=== PATIENT | female | born 1980 | race Caucasian/White ===

== ENCOUNTER 2016-10-30 14:38 | Emergency (ER) | payer OTHER ==
[~2016-10-30] VITALS: Ht 175.3 cm; Wt 65.3 kg
[2016-10-30 15:05] VITALS: BP 107/73
[2016-10-30] MEDS ORDERED: XANAX1 M1 PO (15:35)
[2016-10-30] MEDS ORDERED: LITHIUM CARBON300 M5 PO (15:35)
[2016-10-30] MEDS ORDERED: LITHIUM CARBON150 M1 PO (15:35)
[2016-10-30] MEDS ORDERED: QUETIAPINE FUMA50 M1 PO (15:35)
[2016-10-30] MEDS ORDERED: WELLBUTRIN XL150 M2 PO (15:35)
[2016-10-30] MEDS ORDERED: TOPAMAX50 M1 PO (15:35)
[2016-10-30] MEDS ORDERED: BUSPIRONE HCL10 M1 PO (15:35)
[2016-10-30] MEDS ORDERED: MINIPRESS2 M1 PO (15:35)
[2016-10-30] MEDS ORDERED: ABILIFY10 M1 PO (15:35)
--- NOTE | 2016-10-30 15:36 | ED GENERAL ADULT ---
History of Present Illness General Chief Complaint: General Adult Stated Complaint: MED REFILL Source: patient, old records Exam Limitations: no limitations Vital Signs & Intake/Output Vital Signs & Intake/Output Vital Signs Date Time Temp Pulse Resp B/P Pulse O2 O2 Flow FiO2 Ox Delivery Rate 10/30 1505 97.6 86 18 107/73 99 Room Air Allergies Coded Allergies: No Known Allergies (10/30/16) Reconcile Medications Alprazolam (Xanax) 1 MG TABLET 1 TAB PO TID ANXIETY Aripiprazole (Abilify) 10 MG TABLET 1 TAB PO DAILY ANXIETY Bupropion HCl (Wellbutrin XL) 150 MG TAB.ER.24H 1 TAB PO QAM DEPRESSION Buspirone HCl 10 MG TABLET 1 TAB PO BID DEPRESSION [place] Carbonate 150 MG CAPSULE 1 CAP PO QAM DEPRESSION [place] Carbonate 300 MG TABLET 1 TAB PO QPM DEPRESSION Prazosin HCl (Minipress) 2 MG CAPSULE 1 CAP PO QPM ANXIETY Quetiapine Fumarate 50 MG TABLET 1 TAB PO BID DEPRESISON Topiramate (Topamax) 50 MG TABLET 1 TAB PO QPM DEPRESSION Triage Note: STATES SHE RAN OUT OF ALL HER MEDICATIONS ON 10/28, SAW PMD ON 10/27, WHO WAS SUPPOSED TO RENEW MEDS. (Julia JOHNSON, [facility] [place], PT WENT TO [facility] IN [place], MEDS WERE NOT REFILLED. PT HAS LIST OF 9 MEDICATIONS WITH HER. Triage Nurses Notes Reviewed? yes : No Patient currently breastfeeds: No HPI: Patient saw her psychiatrist last week and the psychiatrist forgot to call in a refill for her prescription. Patient is able to see her psychiatrist again this for more meds but needs medications to last until then. Patient denies any suicidal or homicidal ideations. Patient denies any hallucinations. Patient has no other complaints. Past History Travel History Traveled to [place] past 21 day No Medical History Any Pertinent Medical History? see below for history Psychiatric: anxiety, depression, PTSD Surgical History Surgical History: non-contributory Psychosocial History What is your primary language Colombian Tobacco Use: Current Daily Use Daily Tobacco Use Amount/Type: =< 4 Cigarettes daily ETOH Use: denies use Illicit Drug Use: denies illicit drug use Family History Hx Contributory? No Review of Systems Review of Systems Constitutional: Reports: no symptoms. Respiratory: Reports: no symptoms. Cardiovascular: Reports: no symptoms. Musculoskeletal: Reports: no symptoms. Neurological/Psychological: Reports: no symptoms. Immunologic/Allergic: Reports: no symptoms. Physical Exam Physical Exam General Appearance: well developed/nourished, alert, awake Head: atraumatic Eyes: Bilateral: PERRL, EOMI. Neck: normal inspection, supple, full range of motion Respiratory: normal breath sounds, chest non-tender, no respiratory distress, lungs clear Cardiovascular: regular rate/rhythm, normal peripheral pulses Neurologic/Psych: no motor/sensory deficits, awake, alert, oriented x 3, normal gait, normal mood/affect Core Measures ACS in differential dx? No CVA/TIA Diagnosis: No Severe Sepsis Present: No Septic Shock Present: No Progress Differential Diagnoses I considered the following diagnoses in my evaluation of the patient: [ Medication refill] Plan of Care: Refill medications Initial ED EKG: none Departure Departure Disposition: HOME OR SELF CARE Condition: Stable Clinical Impression Primary Impression: Medication refill Referrals: PATIENT HAS NO PRIMARY CARE DR (PCP/Family) Departure Forms: Customer Survey General Discharge Information Prescriptions: Current Visit Scripts Alprazolam (Xanax) 1 TAB PO TID #21 TAB Topiramate (Topamax) 1 TAB PO QPM #7 TAB Quetiapine Fumarate 1 TAB PO BID #14 TAB [place] Carbonate 1 CAP PO QAM #7 CAP [place] Carbonate 1 TAB PO QPM #7 TAB Prazosin HCl (Minipress) 1 CAP PO QPM #7 CAP Buspirone HCl 1 TAB PO BID #14 TAB Aripiprazole (Abilify) 1 TAB PO DAILY #7 TAB Bupropion HCl (Wellbutrin XL) 1 TAB PO QAM #7 TAB Critical Care Note Critical Care Note Critical Care Time: non-applicable
== END 2016-10-30 15:41 ==
LOC: ERH 14:38
DX: Z76.0 Encounter for issue of repeat prescription (principal)
CPT/HCPCS: 99281

== ENCOUNTER 2016-11-21 12:04 | Emergency (ER) | payer OTHER ==
[~2016-11-21] VITALS: Ht 175.3 cm; Wt 65.3 kg
[~2016-11-21 12:04] MED LIST: ABILIFY10 M1 PO; BUSPIRONE HCL10 M1 PO; LITHIUM CARBON150 M1 PO; LITHIUM CARBON300 M5 PO; MINIPRESS2 M1 PO; QUETIAPINE FUMA50 M1 PO; TOPAMAX50 M1 PO; WELLBUTRIN XL150 M2 PO; XANAX1 M1 PO
--- NOTE | 2016-11-21 12:59 | ED GENERAL ADULT ---
History of Present Illness General Chief Complaint: General Adult Stated Complaint: MED REFILL Source: patient, old records Exam Limitations: no limitations Vital Signs & Intake/Output Vital Signs & Intake/Output Vital Signs Date Time Temp Pulse Resp B/P Pulse O2 O2 Flow FiO2 Ox Delivery Rate 11/21 1334 98.1 78 18 144/82 97 Room Air 11/21 1231 97.4 71 18 152/84 99 Room Air Allergies Coded Allergies: No Known Allergies (10/30/16) Reconcile Medications Alprazolam 1 MG TABLET 1 TAB PO TID mental health Alprazolam (Xanax) 1 MG TABLET 1 TAB PO TID ANXIETY Aripiprazole (Abilify) 10 MG TABLET 1 TAB PO DAILY MENTAL HEALTH Aripiprazole (Abilify) 10 MG TABLET 1 TAB PO DAILY ANXIETY Bupropion HCl (Bupropion XL) 150 MG TAB.ER.24H 1 TAB PO QAM MENTAL HEALTH Bupropion HCl (Wellbutrin XL) 150 MG TAB.ER.24H 1 TAB PO QAM DEPRESSION Buspirone HCl 10 MG TABLET 1 TAB PO BID MENTAL HEALTH Buspirone HCl 10 MG TABLET 1 TAB PO BID DEPRESSION [place] Carbonate 150 MG CAPSULE 1 CAP PO QAM MENTAL HEALTH [place] Carbonate 300 MG TABLET 1 TAB PO QPM MENTAL HEALTH [place] Carbonate 150 MG CAPSULE 1 CAP PO QAM DEPRESSION [place] Carbonate 300 MG TABLET 1 TAB PO QPM DEPRESSION Prazosin HCl 2 MG CAPSULE 1 CAP PO QPM MENTAL HEALTH Prazosin HCl (Minipress) 2 MG CAPSULE 1 CAP PO QPM ANXIETY Quetiapine Fumarate 50 MG TABLET 1 TAB PO QPM mental health Quetiapine Fumarate 50 MG TABLET 1 TAB PO BID DEPRESISON Topiramate (Topamax) 50 MG TABLET 1 TAB PO QPM mental health Topiramate (Topamax) 50 MG TABLET 1 TAB PO QPM DEPRESSION Triage Note: 36 Y/O FEMALE REQUESTING REFILL OF MEDICATIONS. STATES SHE MISSED HER APPT WITH HER PRESCRIBING DOCTOR AND NOW DOCTOR IS AWAY ON VACATION. HAS PRINTED LIST FROM PHARMACY OF ALL NEEDED MEDS Triage Nurses Notes Reviewed? yes Onset: Abrupt Duration: day(s): (5), constant Timing: recent history Injury Environment: home Severity: mild Severity Numbers: 4 No Modifying Factors: none Associated Symptoms: DENIES : No Patient currently breastfeeds: No HPI: 36-year-old female presents emergency room requesting medication refill of her psychiatric medicines which she states she ran out of 5 days ago. Patient states she's had difficulty sleeping since then. She attempted to follow up with her psychiatrist in [place] however she states that she is away on vacation and is not sure when she will return. The patient denies hallucinations or thoughts of wanting to harm herself. She is otherwise without any complaints and is declining wishing to speak with crisis when offered. No chest pain abdominal pain. There are no modifying factors or associated symptoms otherwise. (LEANN MACHUCA) Past History Travel History Traveled to [place] past 21 day No Medical History Any Pertinent Medical History? 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 No (LEANN MACHUCA) Review of Systems Review of Systems Constitutional: Reports: see HPI. All Other Systems: Reviewed and Negative Comments Review of systems: See HPI, All other systems negative. Constitutional, no chills no fever, no malaise HEENT: No visual changes no sore throat no congestion Cardiovascular: No chest pain , no palpitation Skin, no jaundice no rashes, no change in skin Respiratory: No dyspnea no cough no sputum GI: No nausea no vomiting, no diarrhea : No dysuria Muscle skeletal: No joint pain, no back pain, no neck pain, Neurologic: No numbness no headache Psych: stress (+) ANXIETY Heme/endocrine: No bruising no bleeding Immunology: No lymphadenopathy (LEANN MACHUCA) Physical Exam Physical Exam General Appearance: well developed/nourished, no apparent distress, alert, awake Comments: Well-developed well-nourished patient in no apparent distress. HEENT: Atraumatic, extraocular motion intact Neck: Supple, FROM Back: FROM Cardiovascular: Regular rate and rhythms no murmurs rubs or gallops, Respiratory: No respiratory distress. Patient speaking in full complete sentences. Extremities: full range of motion Neuro: Alert and oriented x3 Skin: Warm & dry;No appreciable rash on exposed skin Psych: Mood affect normal, normal memory normal judgment. Core Measures ACS in differential dx? No CVA/TIA Diagnosis: No Severe Sepsis Present: No Septic Shock Present: No (LEANN MACHUCA) Progress Differential Diagnoses I considered the following diagnoses in my evaluation of the patient: Medication refill, anxiety depression benzodiazepine abuse] Plan of Care: ctpmp was reviewed. Discussed with patient that this ER cannot continue to provide her with refills of all her medications need for close follow-up with the psychiatrist that is managing these medications on a regular basis. A 3 week supply was provided for all medications. Patient feels comfortable with this plan cleared for discharge Initial ED EKG: none (LEANN MACHUCA) Departure Departure Time of Disposition: 1258 Disposition: HOME OR SELF CARE Condition: Stable Clinical Impression Primary Impression: Medication refill Referrals: PATIENT HAS NO PRIMARY CARE DR (PCP/Family) Additional Instructions: Follow-up with your psychiatrist for future refills of your medications. Take them as prescribed. Return anytime sooner with any concerns. Prescriptions were sent to your pharmacy Departure Forms: Customer Survey General Discharge Information Prescriptions: Current Visit Scripts Alprazolam 1 TAB PO TID #21 TAB Topiramate (Topamax) 1 TAB PO QPM #21 TAB Quetiapine Fumarate 1 TAB PO QPM #21 TAB [place] Carbonate 1 CAP PO QAM #21 CAP [place] Carbon[place] 1 TAB PO QPM #21 TAB Prazosin HCl 1 CAP PO QPM #21 CAP Buspirone HCl 1 TAB PO BID #42 TAB Aripiprazole (Abilify) 1 TAB PO DAILY #21 TAB Bupropion HCl (Bupropion XL) 1 TAB PO QAM #21 TAB (LEANN MACHUCA) PA/SAVE ALL OPERATOR Co-Sign Statement Statement: ED Attending supervision documentation- [] I saw and evaluated the patient. I have also reviewed all the pertinent lab results and diagnostic results. I agree with the findings and the plan of care as documented in the PA's/SAVE ALL OPERATOR's documentation. [X] I have reviewed the ED Record and agree with the PA's/SAVE ALL OPERATOR's documentation. [] Additions or exceptions (if any) to the PAs/SAVE ALL OPERATOR's note and plan are summarized below: [] (JON LUZ,ENRICO Mcclure) Critical Care Note Critical Care Note Critical Care Time: non-applicable (LEANN MACHUCA)
[2016-11-21] MEDS ORDERED: BUPROPION XL150 MG PO (13:03)
[2016-11-21] MEDS ORDERED: BUSPIRONE HCL10 M1 PO (13:03)
[2016-11-21] MEDS ORDERED: ALPRAZOLAM1 M2 PO (13:03)
[2016-11-21] MEDS ORDERED: LITHIUM CARBON300 M5 PO (13:03)
[2016-11-21] MEDS ORDERED: TOPAMAX50 M1 PO (13:03)
[2016-11-21] MEDS ORDERED: QUETIAPINE FUMA50 M1 PO (13:03)
[2016-11-21] MEDS ORDERED: ABILIFY10 M1 PO (13:03)
[2016-11-21] MEDS ORDERED: PRAZOSIN HCL2 M1 PO (13:03)
[2016-11-21] MEDS ORDERED: LITHIUM CARBON150 M1 PO (13:03)
[2016-11-21 13:34] VITALS: BP 144/82
== END 2016-11-21 13:35 ==
LOC: ERH 12:04
DX: Z76.0 Encounter for issue of repeat prescription (principal)
CPT/HCPCS: 99281

== ENCOUNTER 2016-12-04 16:06 | Emergency (ER) | payer OTHER ==
[~2016-12-04] VITALS: Ht 175.3 cm; Wt 61.7 kg
[~2016-12-04 16:06] MED LIST changes: +ALPRAZOLAM1 M2 PO; +BUPROPION XL150 MG PO; +PRAZOSIN HCL2 M1 PO
--- NOTE | 2016-12-04 17:08 | ED GENERAL ADULT ---
History of Present Illness General Chief Complaint: General Adult Stated Complaint: MED REFILL Source: patient, old records Exam Limitations: no limitations Vital Signs & Intake/Output Vital Signs & Intake/Output Vital Signs Date Time Temp Pulse Resp B/P Pulse O2 O2 Flow FiO2 Ox Delivery Rate 12/04 1730 Room Air 12/04 1722 98.0 90 18 100/70 94 Room Air 12/04 1618 97.7 92 16 115/78 96 Room Air Allergies Coded Allergies: No Known Allergies (10/30/16) Reconcile Medications Alprazolam 1 MG TABLET 1 TAB PO TIDPRN ANXIETY Alprazolam 1 MG TABLET 1 TAB PO TID mental health Aripiprazole (Abilify) 10 MG TABLET 1 TAB PO DAILY DEPRESSION Aripiprazole (Abilify) 10 MG TABLET 1 TAB PO DAILY MENTAL HEALTH Bupropion HCl (Bupropion XL) 150 MG TAB.ER.24H 1 TAB PO DAILY DEPRESSION/ ANXEITY Bupropion HCl (Bupropion XL) 150 MG TAB.ER.24H 1 TAB PO QAM MENTAL HEALTH Buspirone HCl 10 MG TABLET 1 TAB PO BID ANXIETY Buspirone HCl 10 MG TABLET 1 TAB PO BID MENTAL HEALTH [place] Carbonate 150 MG CAPSULE 1 CAP PO QAM ANXIETY [place] Carbonate 300 MG CAPSULE 1 CAP PO QPM BIPOLAR/ANXIETY [place] Carbonate 150 MG CAPSULE 1 CAP PO QAM MENTAL HEALTH [place] Carbonate 300 MG TABLET 1 TAB PO QPM MENTAL HEALTH Prazosin HCl (Minipress) 2 MG CAPSULE 1 CAP PO QPM ANXIETY Prazosin HCl 2 MG CAPSULE 1 CAP PO QPM MENTAL HEALTH Quetiapine Fumarate (Seroquel) 50 MG TABLET 1 TAB PO BID ANXIETY Quetiapine Fumarate 50 MG TABLET 1 TAB PO QPM mental health Quetiapine Fumarate 50 MG TABLET 1 TAB PO BID DEPRESISON Topiramate (Topamax) 50 MG TABLET 1 TAB PO QPM ANXIETY/DEPRESSION Topiramate (Topamax) 50 MG TABLET 1 TAB PO QPM mental health Triage Note: PT STATES SHE IS HERE TO GET HER PSYCH MEDS. PT STATES HER DRJulieta IS STILL ON VACATION AND SHE HAS NOT HAD HER PSYCH MEDS SINCE. MONDAY. Triage Nurses Notes Reviewed? yes Onset: Abrupt Duration: day(s):, constant Timing: recent history Injury Environment: home : No Patient currently breastfeeds: No HPI: 36-year-old female comes into emergency room requesting a refill on all her psychiatric medications. Patient cannot get in with her doctor for another week. Her doctor has been on medication. This is a patient's third visit here in the past month and a half. Denies any pain. Denies any suicidal or homicidal ideation. Denies any other associated symptoms. (NEERAJ DOMINIQUE) Past History Travel History Traveled to [place] past 21 day No Medical History Any Pertinent Medical History? 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 No (NEERAJ DOMINIQUE) Review of Systems Review of Systems Constitutional: Reports: no symptoms. EENTM: Reports: no symptoms. Respiratory: Reports: no symptoms. Cardiovascular: Reports: no symptoms. GI: Reports: no symptoms. Genitourinary: Reports: no symptoms. Musculoskeletal: Reports: no symptoms. Skin: Reports: no symptoms. Neurological/Psychological: Reports: no symptoms. Hematologic/Endocrine: Reports: no symptoms. Immunologic/Allergic: Reports: no symptoms. All Other Systems: Reviewed and Negative (NEERAJ DOMINIQUE) Physical Exam Physical Exam General Appearance: well developed/nourished, no apparent distress, alert Head: atraumatic, normal appearance Eyes: Bilateral: normal appearance. Ears, Nose, Throat: normal ENT inspection, hearing grossly normal Neck: normal inspection Respiratory: no respiratory distress Back: normal range of motion Extremities: normal inspection, normal range of motion Neurologic/Psych: awake, alert, oriented x 3, normal gait, normal mood/affect Skin: intact, normal color Core Measures ACS in differential dx? No CVA/TIA Diagnosis: No Severe Sepsis Present: No Septic Shock Present: No (NEERAJ DOMINIQUE) Progress Differential Diagnoses I considered the following diagnoses in my evaluation of the patient: Depression, anxiety, bipolar, insomnia, schizophrenia, Plan of Care: 12/04/2016 6:14:02 PM Patient was told that this will be the last time she will get a refill for these medications here in the emergency room and she needs to see her psychiatrist. Patient has been here multiple times and this has been going on for over a month. Initial ED EKG: none (NEERAJ DOMINIQUE) Departure Departure Disposition: HOME OR SELF CARE Condition: Stable Clinical Impression Primary Impression: Medication refill Referrals: PATIENT HAS NO PRIMARY CARE DR (PCP/Family) Additional Instructions: You will not be able to get any prescriptions refilled here on any subsequent visits. You need to follow-up with your psychiatrist. Please go over all results of today's visit with your primary care doctor. Contact your primary care doctor to let them know you were here in the emergency room. There may be nonspecific findings which may not be related to your visit today here in the emergency room but may require further evaluation and chronic monitoring by your primary care doctor. If you had a laceration today the chance of foreign body always remains. You should follow-up with your primary care doctor for recheck in 3-5 days for a wound check. If you had an x-ray done there is a chance that a fracture could have been missed on initial read and you should follow-up with your primary care doctor for repeat x-rays if symptoms persist. If your blood pressure was elevated here in the emergency room please have rechecked by her primary care doctor within the next 48 hours by your primary care doctor. If you were prescribed a narcotic here in the emergency room or any type of controlled substances you're not allowed to drive while taking this medication or operate any type of heavy machinery. Narcotics can make you feel lightheaded dizziness nausea and can cause constipation. You may need to berry picker a stool softener. Thank you for choosing [facility] emergency room. Please return to the emergency room immediately if you have any other concerns worsening of symptoms. Departure Forms: Customer Survey General Discharge Information Prescriptions: Current Visit Scripts Alprazolam 1 TAB PO TIDPRN #10 TAB Aripiprazole (Abilify) 1 TAB PO DAILY #7 TAB Bupropion HCl (Bupropion XL) 1 TAB PO DAILY #7 TAB Buspirone HCl 1 TAB PO BID #7 TAB [place] Carbonate 1 CAP PO QAM #7 CAP [place] Carbonate 1 CAP PO QPM #7 CAP Prazosin HCl (Minipress) 1 CAP PO QPM #7 CAP Quetiapine Fumarate (Seroquel) 1 TAB PO BID #14 TAB Topiramate (Topamax) 1 TAB PO QPM #7 TAB (NEERAJ DOMINIQUE) PA/CAREER BASED INTERVENTION COORDINATOR Co-Sign Statement Statement: ED Attending supervision documentation- [] I saw and evaluated the patient. I have also reviewed all the pertinent lab results and diagnostic results. I agree with the findings and the plan of care as documented in the PA's/CAREER BASED INTERVENTION COORDINATOR's documentation. [] I have reviewed the ED Record and agree with the PA's/CAREER BASED INTERVENTION COORDINATOR's documentation. [] Additions or exceptions (if any) to the PAs/CAREER BASED INTERVENTION COORDINATOR's note and plan are summarized below: [] (KELLY LUZ,JONATHAN) Critical Care Note Critical Care Note Critical Care Time: non-applicable (NEERAJ DOMINIQUE)
[2016-12-04] MEDS ORDERED: BUPROPION XL150 MG PO (17:18)
[2016-12-04] MEDS ORDERED: ABILIFY10 M1 PO (17:18)
[2016-12-04] MEDS ORDERED: BUSPIRONE HCL10 M1 PO (17:18)
[2016-12-04] MEDS ORDERED: SEROQUEL50 M1 PO (17:18)
[2016-12-04] MEDS ORDERED: ALPRAZOLAM1 M2 PO (17:18)
[2016-12-04] MEDS ORDERED: LITHIUM CARBON150 M1 PO (17:18)
[2016-12-04] MEDS ORDERED: TOPAMAX50 M1 PO (17:18)
[2016-12-04] MEDS ORDERED: MINIPRESS2 M1 PO (17:18)
[2016-12-04] MEDS ORDERED: LITHIUM CARBON300 M4 PO (17:18)
[2016-12-04 17:22] VITALS: BP 100/70
== END 2016-12-04 17:31 ==
LOC: ERH 16:06
DX: Z76.0 Encounter for issue of repeat prescription (principal)
CPT/HCPCS: 99281